=== PATIENT | male | born 1935 | race Caucasian/White ===

== ENCOUNTER → 2016-08-14 | Outpatient (CLI) | payer OTHER, MEDICARE ==
--- NOTE | 2016-08-14 15:49 | DI ---
MAMMO [facility]/L DIAGNOSTIC,08/14/2016 3:16 PM: Clinical History: Right breast lump. Previous Exam: None at this facility. Findings: CC and MLO views are obtained of the right breast demonstrating normal spleen-shaped subareolar densi ty consistent with gynecomastia. There is no mass identified nor suspicious cluster of microcalcifica tions nor any architectural distortion. Computer-aided diagnostics were applied. Impression: No mammographic evidence of malignancy. BIRADS: 2: Benign findings Recommendations: Annual screening. Overall imaging assessment: Benign findings.
== END ==
LOC: MAMMO 15:05
PROVIDERS: ATTEND Family Medicine
DX: N63 Unspecified lump in breast (principal); N62 Hypertrophy of breast
CPT/HCPCS: G0206